=== PATIENT | female | born 1970 | race Caucasian/White ===

== ENCOUNTER 2021-04-17 23:44 | Emergency (ER) | payer BC ==
[~2021-04-17] VITALS: Ht 147.3 cm; Wt 93.0 kg
[2021-04-17 23:45] VITALS: BP_SYST 150
--- NOTE | 2021-04-17 23:45 | NUR ---
BROUGHT BACK TO ER TENT AND TRIAGED. AWAITING ER BED AVAILABILITY
--- NOTE | 2021-04-17 23:55 | NUR ---
PT STATES THAT SHE STARTED VOMITING TODAY AND IT HAS BEEN NON-STOP SINCE. NOW JUST VOMITING YELLOW FLUID. DENIES ANY ABDOMINAL PAIN FOR DYSURIA. STATES SHE HAD GERD A FEW DAYS AGO AND TOOK TUMS WHICH HELPED BUT TODAY IT CAME BACK WORSE. SHE STATES SHE IS SCHEDULED FOR SURGERY ON 04/24 AND WANTS TO MAKE SURE SHE IS OK. STATES SHE WAS COVID + ON 03/25 AND THEN NEGATIVE ON 04/06, PT IS FULLY VACCINATED
--- NOTE | 2021-04-18 02:02 | NUR ---
DR LERNER OUT TO TRIAGE TENT FOR EVALUATION
[2021-04-18] MEDS ORDERED: ONDANSETRON HCL 4 MG/2 ML VIAL IVP ONE (02:15)
[2021-04-18] MEDS ORDERED: NACL 0.9% 1,000 ML IV ONE (02:15)
--- NOTE | 2021-04-18 02:24 | NUR ---
BROUGHT IN TO BED #5 AND REPORT GIVEN TO ARAVIND
--- NOTE | 2021-04-18 03:00 | NUR ---
# 20 gauge angiocath placed to RAC. Use of asceptic technique. Opsite placed over site. Blood return noted. Blood for lab drawn from site. Flushed with 10 cc of normal saline. No evidence of infiltration noted. Patient tolerated well.
[2021-04-18 03:04] LABS: BASOPHILS % (AUTO) 0.2 % (0.0-2.0); EOSINOPHILS % (AUTO) 0.4 % (0.0-4.0); HEMATOCRIT 40.4 % (36-48); HEMOGLOBIN 13.7 g/dL (12.0-16.0); LYMPHOCYTES # (AUTO) 0.7 K/uL (1.0-5.5); MEAN CORPUSCULAR HEMOGLOBIN 30 pg (27-31); MEAN CORPUSCULAR HGB CONC 34 % (32-36); MEAN CORPUSCULAR VOLUME 88 fL (79.0-98.0); MONOCYTES # (AUTO) 0.2 K/uL (0.0-1.0); MONOCYTES % (AUTO) 2.3 % (1.7-9.3); NEUTROPHILS # (AUTO) 9.5 K/uL (1.8-7.7); NEUTROPHILS % (AUTO) 90.1 % (40.0-70.0); PLATELET COUNT (AUTO) 220 K/uL (130-430); RED BLOOD CELL COUNT(AUTO) 4.58 MIL/uL (4.2-6.2); RED CELL DISTRIBUTION WIDTH 13.6 % (9.0-15.0); WHITE BLOOD COUNT (AUTO) 10.5 K/uL (4.8-10.8)
[2021-04-18 03:10] VITALS: BP_SYST 155
[2021-04-18 03:16] LABS: ANION GAP 9 (5-15); CALCIUM 8.9 mg/dL (8.4-11.0); CHLORIDE 103 mmol/L (98-107); CREATININE 0.72 mg/dL (0.55-1.30); GFR AFRICAN AMERICAN 110 mL/min (>90); GLUCOSE 124 mg/dL (70-99); SODIUM SERUM 137 mmol/L (136-145); UREA NITROGEN, BLOOD 15 mg/dL (8-21)
[2021-04-18 03:24] LABS: ALANINE AMINOTRANSFERASE 26 U/L (12-78); ASPARTATE AMINOTRANSFERASE 14 U/L (10-37); LIPASE 58 U/L (73-393)
[2021-04-18] MEDS ORDERED: ONDA4TAB5 PO (03:48)
--- NOTE | 2021-04-18 04:16 | NUR ---
Patient given written and verbal discharge instructions and verbalizes understanding. ER MD discussed with patient the results and treatment provided. Patient in stable condition. ID arm band removed. IV catheter removed intact and dressing applied, no active bleeding. Rx of ZOFRAN given. Patient educated on pain management and to follow up with PMD. Pain Scale 0/10. Opportunity for questions provided and answered. Medication side effect fact sheet provided.
== END 2021-04-18 04:16 | disposition home or self-care (01) ==
LOC: SED 23:44
DX: K52.9 Noninfective gastroenteritis and colitis, unspecified (principal); Z79.899 Other long term (current) drug therapy
CPT/HCPCS: 36415; 71045; 80053; 83690; 84484; 85025; 93005; 96361; 96374; 99285; J2405; J7030